=== PATIENT | female | born 1960 | race Two or more races ===

== ENCOUNTER 2018-12-12 07:32 | Outpatient (CLI) | payer OTHER | END 2018-12-12 07:35 | disposition home or self-care (01) | LOC: SONOGRAMA 07:32 | DX: E04.1 Nontoxic single thyroid nodule (principal) ==

== ENCOUNTER 2021-06-02 08:03 | Outpatient (CLI) | payer OTHER | END 2021-06-02 08:05 | disposition home or self-care (01) | LOC: SONOGRAMA 08:03 | PROVIDERS: ATTEND Pathology Anatomic Pathology & Clinical Pathology | DX: E04.2 Nontoxic multinodular goiter (principal) ==